=== PATIENT | female | born 1975 | race Caucasian/White ===

== ENCOUNTER 2016-08-20 19:17 | Emergency (ER) | payer MEDICAID ==
[~2016-08-20] VITALS: Ht 162.6 cm; Wt 58.0 kg
[2016-08-20 20:26] VITALS: Ht 162.6 cm; Wt 58.0 kg
[2016-08-20] MEDS ORDERED: ACETAMINOPHEN 325 MG TAB PO STA (22:12)
--- NOTE | 2016-08-20 22:17 | ERD ---
ER Documentation Chief Complaint Date/Time DATE: 08/20/16 TIME: 22:14 Chief Complaint 9 weeks , vag bleeding x 2 days w/ pelvic pain HPI The patient is a 40-year-old female here with vaginal bleeding and lower abdominal pain since yesterday. The bleeding has increased since this morning. Last menstrual period was 06/20/16. She was diagnosed with at her doctor's office recently. She is a . She denies dysuria, flank pain, fever , chills, nausea, vomiting, diarrhea, recent illness, dizziness, lightheadedness , chest pain, or any other symptoms or concerns at this time. ROS All systems reviewed and are negative except as per history of present illness. Medications Home Meds Active Scripts Acetaminophen* (Tylenol*) 325 Mg Tablet, 2 TAB PO Q8 Y for PAIN AND OR ELEVATED TEMP, #20 TAB Prov:JUAN DANIEL LYLES, INSPECTOR ALIGNING 08/21/16 Phenazopyridine Hcl* (Pyridium*) 100 Mg Tab, 100 MG PO TID Y for URINARY PAIN, # 8 TAB Prov:JUAN DANIEL LYLES NP 08/21/16 Nitrofurantoin Monohyd Macrocr* (Macrobid*) 100 Mg Capsr, 100 MG PO BID for 7 Days, CAP Prov:JUAN DANIEL LYLES NP 08/21/16 Allergies Allergies: Coded Allergies: No Known Allergy (Unverified , 08/20/16) PMhx/Soc Medical and Surgical Hx: pt denies Medical Hx, pt denies Surgical Hx History of Surgery: No Anesthesia Reaction: No Hx Neurological Disorder: No Hx Respiratory Disorders: No Hx Cardiac Disorders: No Hx Psychiatric Problems: No Hx Miscellaneous Medical Probl: No Hx Alcohol Use: No Hx Substance Use: No Hx Tobacco Use: No Smoking Status: Never smoker Physical Exam Vitals Vital Signs Date Time Temp Pulse Resp B/P Pulse Ox O2 Delivery O2 Flow Rate FiO2 08/21/16 00:56 100.2 78 18 125/70 100 Room Air 08/20/16 20:26 98.9 96 20 135/68 100 Physical Exam INITIAL VITAL SIGNS: Reviewed by me GENERAL: Alert. Well developed and well nourished. No acute distress. Nontoxic appearing. HEAD: Head is normocephalic. Atraumatic. EYES: EOMI. PERRL. No scleral icterus. No conjunctival injection. ENT: External ears, nose, and mouth normal. Nasal passages patent. Moist mucous membranes. NECK: Supple. Full range of motion. Trachea midline. RESPIRATORY: No tachypnea. Clear to auscultation bilaterally. No wheezing, rales , or rhonchi. CV: Regular rate and rhythm. No murmurs, rubs, or gallops ABDOMEN: Soft, non-distended, non-tender. No guarding. Bowel sounds normal in all quadrants. BACK: No CVA tenderness. Full ROM. EXTREMITIES: No obvious deformity. No clubbing or cyanosis. No edema. SKIN: Warm and dry. No diaphoresis. No obvious rashes or lesions. NEUROLOGIC: Alert and oriented x 3. Appropriate. Face is symmetric. Speech is normal. Moves all extremities equally. Result Diagram: 08/20/162234 Results 24 hrs Laboratory Tests Test 08/20/16 22:35 08/20/16 22:55 Basophils # 0.010^3/ul Basophils % 0.3% Beta HCG, Quantitative 34370.0mIU/ml Eosinophils # 0.010^3/ul Eosinophils % 0.2% Hematocrit 41.5% Hemoglobin 14.1g/dl Lymphocytes # 1.810^3/ul Lymphocytes % 12.0% Mean Corpuscular Hemoglobin 29.8pg Mean Corpuscular Hemoglobin Concent 34.0g/dl Mean Corpuscular Volume 87.6fl Mean Platelet Volume 8.9fl Monocytes # 0.610^3/ul Monocytes % 3.9% Neutrophils # 12.310^3/ul Neutrophils % 83.6% Nucleated Red Blood Cells # 0.010^3/ul Nucleated Red Blood Cells % 0.0/100WBC Platelet Count 26025^3/UL Red Blood Count 4.7410^6/ul Red Cell Distribution Width 12.8% White Blood Count 14.710^3/ul Urine Bacteria FEW Urine Bilirubin NEGATIVE Urine Clarity CLOUDY Urine Color DK. RED Urine Glucose NEGATIVE% Urine Hemoglobin 3+ Urine Ketones 15 Urine Leukocyte Esterase 1+ Urine Microscopic RBC >200/HPF Urine Microscopic WBC 5-10/HPF Urine Nitrite POSITIVE Urine Specific [place] 1.020 Urine Squamous Epithelial Cells OCCASIONAL Urine Total Protein 2+ Urine Urobilinogen 1.0 E.U./dL Urine pH 5.0 Current Medications Medications (Trade) Dose Ordered Sig/Rashard Route PRN Reason Start Time Stop Time Status Last Admin Dose Admin Acetaminophen (Tylenol Tab) 1,000 mg ONCE STAT PO 08/20/16 22:12 08/20/16 22:14 DC Acetaminophen (Tylenol Tab) 1,000 mg ONCE STAT PO 08/20/16 22:31 08/20/16 22:32 DC 08/20/16 22:34 Acetaminophen (Tylenol Tab) 500 mg STK-MED ONCE .ROUTE 08/20/16 22:32 08/20/16 22:33 DC [place] [id number] Radiology Main Line: [phone] DIAGNOSTIC IMAGING REPORT Patient: DONTE VELEZ : 1975 Age: 40 Sex: F MR #: [id number] DOS: 08/20/16 2212 Ordering MD: JUAN DANIEL LYLES NP Location: [facility] Room/Bed: PROCEDURE: Obstetrical ultrasound. CLINICAL INDICATION: Vaginal bleeding. TECHNIQUE: Multiple sonographic images of the pelvis were obtained utilizing a transabdominal and endovaginal technique. The images were reviewed on a PACS workstation. COMPARISON: None. FINDINGS: The uterus is visualized. No abnormal uterine mass is identified. The endometrial echo complex is thickened and heterogeneous measuring 20.5 mm. No intrauterine is identified. There is no abnormal flow to suggest retained products. There is no evidence for free fluid. The right ovary has a normal echotexture and measures 2.8 x 1.0 x 2.1 cm. The left ovary has a normal echotexture and measures 2.9 x 1.4 x 1.8 cm. There is normal flow to both ovaries. No adnexal masses are identified. IMPRESSION: Thickened and heterogeneous endometrium with no evidence of intrauterine or retained products. Clinical beta-hCG correlation and follow-up is recommended. .David Barrow MD, MD Date Time Electronically viewed and signed by .David Barrow MD, on 08/20/2016 23:40 .T/ CC: JUAN DANIEL LYLES NP Procedures/MDM Nursing Notes Reviewed Previous Medical Records requested via [employer]. EMERGENCY DEPARTMENT COURSE / MEDICAL DECISION MAKING: The patient comes to the ED secondary to vaginal bleeding, lower abdominal cramping since yesterday. Differential diagnosis upon initial evaluation includes but is not limited to: Ectopic , threatened , incomplete , complete , and others. The patient was treated with Tylenol 1 g by mouth with relief. The case was discussed with supervising physician Dr. Knowles. Ultrasound per radiology report: IMPRESSION: Thickened and heterogeneous endometrium with no evidence of intrauterine or retained products. Clinical beta-hCG correlation and follow-up is recommended. Beta HC CBC: no e/o of systemic infection or severe anemia UA: Evidence of infection Otherwise within normal limits, unremarkable, or as documented above. Final impression: Threatened Urinary tract infection Based on patient's history of present illness and physical examination the decision was made to discharge. The patient was re-evaluated after ED treatment and stabilizing measures, and symptoms have improved. There is no evidence of life threatening injuries or illnesses at this time. On re-examination, patient resting in no distress, stable vital signs, reports feeling better and safe for discharge with outpatient follow up here and 48 hours for a re-check of her beta HCG. Patient given return precautions. The patient's sister was with her when I gave return precautions and plan of care. They both verbalized understanding and agreed and all of their questions and concerns were addressed prior to discharge. They both agreed that the patient will return here in 48 hours. Patient's blood pressure was elevated but appears stable without evidence of hypertensive emergency, end organ damage, chest pain or shortness of breath. The patient was counseled about the risks of untreated hypertension and urged to pursue outpatient monitoring and therapy in 2-3 days with their primary care physician. Prescriptions Tylenol Pyridium Macrobid JUAN DANIEL LYLES NP Aug 20, 2016 22:17
[2016-08-20] MEDS ORDERED: ACETAMINOPHEN 500 MG TAB PO STA (22:31)
[2016-08-20] MEDS ORDERED: ACETAMINOPHEN 500 MG TAB ONE (22:32)
[2016-08-20 22:57] LABS: BASOPHILS % 0.3 % (0.0-2.0); EOSINOPHILS % 0.2 % (0.0-7.0); HEMATOCRIT 41.5 % (37.0-47.0); HEMOGLOBIN 14.1 g/dl (12.0-16.0); LYMPHOCYTES # 1.8 10^3/ul (0.8-2.9); MEAN CORPUSCULAR HEMOGLOBIN 29.8 pg (29.0-33.0); MEAN CORPUSCULAR VOLUME 87.6 fl (82.0-101.0); MEAN PLATELET VOLUME 8.9 fl (7.4-10.4); MONOCYTE # 0.6 10^3/ul (0.3-0.9); MONOCYTES % 3.9 % (0.0-11.0); NEUTROPHIL # 12.3 10^3/ul (1.6-7.5); NEUTROPHILS % 83.6 % (39.0-77.0); PLATELET COUNT 256 10^3/UL (140-440); RED BLOOD COUNT 4.74 10^6/ul (4.20-5.40); RED CELL DISTRIBUTION WIDTH 12.8 % (11.5-14.5); UNCORRECTED WBC 14.7 10^3/ul (4.8-10.8); WHITE BLOOD COUNT 14.7 10^3/ul (4.8-10.8)
[2016-08-20 23:02] LABS: CONDITION 1
[2016-08-20 23:34] LABS: ADD UMIC YES; URINE BILIRUBIN (Dip) NEGATIVE (NEGATIVE); URINE BLOOD (Dip) 3+ (NEGATIVE); URINE COLOR DK. RED (YELLOW); URINE GLUCOSE (Dip) NEGATIVE (NEGATIVE); URINE KETONES (Dip) 15 (NEGATIVE); URINE LEUKOCYTE ESTERASE (Dip) 1+ (NEGATIVE); URINE NITRITE (Dip) POSITIVE (NEGATIVE); URINE TOTAL PROTEIN (Dip) 2+ (NEGATIVE); URINE UROBILINOGEN (Dip) 1.0 E.U./dL (0.1-1.0)
--- NOTE | 2016-08-20 23:41 | RADRPT ---
PROCEDURE: Obstetrical ultrasound. CLINICAL INDICATION: Vaginal bleeding. TECHNIQUE: Multiple sonographic images of the pelvis were obtained utilizing a transabdominal and endovaginal technique. The images were reviewed on a PACS workstation. COMPARISON: None. FINDINGS: The uterus is visualized. No abnormal uterine mass is identified. The endometrial echo complex is t hickened and heterogeneous measuring 20.5 mm. No intrauterine is identified. There is no a bnormal flow to suggest retained products. There is no evidence for free fluid. The right ovary has a normal echotexture and measures 2.8 x 1. 0 x 2.1 cm. The left ovary has a normal echotexture and measures 2.9 x 1.4 x 1.8 cm. There is norm al flow to both ovaries. No adnexal masses are identified. IMPRESSION: Thickened and heterogeneous endometrium with no evidence of intrauterine or retained produ cts. Clinical beta-hCG correlation and follow-up is recommended. .David Barrow MD, Date Time Electronically viewed and signed by .David Barrow MD, MD on 08/20/2016 23:40 .T/
[2016-08-20 23:54] LABS: BACTERIA,URINE FEW; SQUAMOUS EPITHELIAL CELL,UR OCCASIONAL; URINE RBCS >200 /HPF (0)
[2016-08-21] MEDS ORDERED: PHEN-537 PO (00:32)
[2016-08-21] MEDS ORDERED: NITR-58 PO (00:32)
[2016-08-21] MEDS ORDERED: ACET325T33 PO (00:32)
[2016-08-21 00:56] VITALS: BP 125/70; PULSE 78; RESP 18; TEMP 100.2
== END 2016-08-21 01:05 | disposition home or self-care (01) ==
LOC: EDBD 19:17 → FTE 19:17
DX: O20.0 Threatened abortion (principal); O23.41 Unspecified infection of urinary tract in pregnancy, first trimester; R10.2 Pelvic and perineal pain
CPT/HCPCS: 36415; 76801; 76817; 81001; 81003; 84702; 85025; 86900; 86901; Z7502; Z7610

== ENCOUNTER 2016-08-22 16:07 | Emergency (ER) | payer MEDICAID ==
[~2016-08-22] VITALS: Ht 162.6 cm; Wt 67.0 kg
[~2016-08-22 16:07] MED LIST: ACET325T33 PO; NITR-58 PO; PHEN-537 PO
[2016-08-22 16:16] VITALS: Ht 162.6 cm; Wt 67.0 kg
--- NOTE | 2016-08-22 20:05 | ERD ---
ER Documentation Chief Complaint Date/Time DATE: 08/22/16 TIME: 19:51 Chief Complaint SEEN ON TUESDAY FOR MISCARRIAGE TOLD TO COME BACK TODAY FOR RECHECK HPI The patient is a 40-year-old female here for recheck of her beta hCG and ultrasound. She was last seen here on 08/20/16. She came in with vaginal bleeding and lower abdominal pain while at that time. Currently, she states that she has only minimal spotting, no clots, and very mild and intermittent uterine cramping. She denies fever, chills, nausea, vomiting, diarrhea, flank pain, dysuria, chest pain, difficulty breathing, dyspnea on exertion, fatigue, the more tired than usual, or any other symptoms. ROS All systems reviewed and are negative except as per history of present illness. Medications Home Meds Active Scripts Acetaminophen* (Tylenol*) 325 Mg Tablet, 2 TAB PO Q8 Y for PAIN AND OR ELEVATED TEMP, #20 TAB Prov:JUAN DANIEL LYLES, MERY 08/21/16 Phenazopyridine Hcl* (Pyridium*) 100 Mg Tab, 100 MG PO TID Y for URINARY PAIN, # 8 TAB Prov:JUAN DANIEL LYLES POT OPERATOR 08/21/16 Nitrofurantoin Monohyd Macrocr* (Macrobid*) 100 Mg Capsr, 100 MG PO BID for 7 Days, CAP Prov:JUAN DANIEL LYLES NP 08/21/16 Allergies Allergies: Coded Allergies: No Known Allergy (Unverified , 08/20/16) PMhx/Soc History of Surgery: No Anesthesia Reaction: No Hx Neurological Disorder: No Hx Respiratory Disorders: No Hx Cardiac Disorders: No Hx Psychiatric Problems: No Hx Miscellaneous Medical Probl: Yes (Miscarriage,UTIs) Hx Alcohol Use: No Hx Substance Use: No Hx Tobacco Use: No Smoking Status: Never smoker Physical Exam Vitals Vital Signs Date Time Temp Pulse Resp B/P Pulse Ox O2 Delivery O2 Flow Rate FiO2 08/22/16 16:16 98.1 78 18 137/71 100 Physical Exam INITIAL VITAL SIGNS: Reviewed by me, afebrile, no tachycardia, no tachypnea, oximetry 100% on room air. GENERAL: Alert. Well developed and well nourished. No acute distress. Nontoxic appearing. HEAD: Head is normocephalic. Atraumatic. EYES: EOMI. No scleral icterus. No conjunctival injection. ENT: External ears, nose, and mouth normal. Nasal passages patent. Moist mucous membranes. NECK: Supple. Full range of motion. Trachea midline. RESPIRATORY: No tachypnea. Clear to auscultation bilaterally. No wheezing, rales , or rhonchi. CV: Regular rate and rhythm. No murmurs, rubs, or gallops ABDOMEN: Soft, non-distended, non-tender. No guarding. No rebound. Bowel sounds normal in all quadrants. BACK: No CVA tenderness. Full ROM. EXTREMITIES: No obvious deformity. No clubbing or cyanosis. No edema. SKIN: Warm and dry. No diaphoresis. No obvious rashes or lesions. NEUROLOGIC: Alert and oriented x 3. Appropriate. Face is symmetric. Speech is normal. Moves all extremities equally. Result Diagram: 08/22/162112 Results 24 hrs Laboratory Tests Test 08/22/16 19:00 08/22/16 19:50 08/22/16 21:13 Beta HCG, Quantitative 3400.1mIU/ml Urine Bacteria FEW Urine Bilirubin NEGATIVE Urine Clarity [place] Urine Color RAIZA Urine Glucose 0.1%% Urine Hemoglobin 3+ Urine Ketones NEGATIVE Urine Leukocyte Esterase TRACE Urine Microscopic RBC >200/HPF Urine Microscopic WBC 2-5/HPF Urine Nitrite POSITIVE Urine Specific [place] 1.020 Urine Squamous Epithelial Cells FEW Urine Total Protein 1+ Urine Urobilinogen 1.0 E.U./dL Urine pH 5.5 Basophils # 0.010^3/ul Basophils % 0.5% Eosinophils # 0.110^3/ul Eosinophils % 1.5% Hematocrit 40.0% Hemoglobin 13.7g/dl Lymphocytes # 2.510^3/ul Lymphocytes % 26.2% Mean Corpuscular Hemoglobin 30.1pg Mean Corpuscular Hemoglobin Concent 34.1g/dl Mean Corpuscular Volume 88.0fl Mean Platelet Volume 9.5fl Monocytes # 0.610^3/ul Monocytes % 6.1% Neutrophils # 6.310^3/ul Neutrophils % 65.7% Nucleated Red Blood Cells # 0.010^3/ul Nucleated Red Blood Cells % 0.0/100WBC Platelet Count 08898^3/UL Red Blood Count 4.5510^6/ul Red Cell Distribution Width 12.9% White Blood Count 9.610^3/ul [place] [id number] Radiology Main Line: [phone] DIAGNOSTIC IMAGING REPORT Patient: DONTE VELEZ : 1975 Age: 40 Sex: F MR #: [id number] DOS: 08/22/162004 Ordering MD: JUAN DANIEL LYLES NP Location: [facility] Room/Bed: PROCEDURE: US OB. CLINICAL INDICATION: Positive , vaginal bleeding TECHNIQUE: Transabdominal and transvaginal views of the pelvis are available for review. COMPARISON: Ultrasound 08/20/2016 FINDINGS: Uterus: Normal; 7.2 x 5.2 cm. There is no evidence of myometrial mass. Endometrial cavity: No intrauterine is identified, the thickness is normal measuring 3.4 mm. Right ovary / adnexa: The ovary is not visualized. There is no evidence of adnexal mass. Left ovary/adnexa: Ovarian size is normal measuring 1.6 x 1.1 cm with no evidence of ovarian or adnexal mass. Normal blood flow seen on Doppler interrogation. Cul-de-sac: No evidence of free fluid. RPTAT:HJJR IMPRESSION: No intrauterine identified. Ectopic is not excluded, but there are no suspicious findings at this time. The study is unchanged from 08/20. Correlation with serial beta HCGs is suggested with followup ultrasound as clinically indicated. Physician Nixon Date Time Electronically viewed and signed by Physician Nixon on 08/22/2016 20:51 JR/ CC: JUAN DANIEL LYLES NP Procedures/MDM Nursing Notes Reviewed Previous Medical Records requested via [employer]. EMERGENCY DEPARTMENT COURSE / MEDICAL DECISION MAKING: The patient comes to the ED secondary to recheck for labs and OB ultrasound. She was last seen here 2 days ago and was diagnosed with threatened and urinary tract infection. Differential diagnosis upon initial evaluation includes but is not limited to: Ectopic , threatened , molar , tract infection, pyelonephritis, and others. The case was discussed with supervising physician Dr. Sotomayor. The CBC, beta, UA , and ultrasound were obtained. CBC: no e/o of systemic infection or severe anemia Beta HC Urine: + Urinary tract infection Otherwise within normal limits, unremarkable, or as documented above. OB ultrasound per radiology report: IMPRESSION: No intrauterine identified. Ectopic is not excluded, but there are no suspicious findings at this time. The study is unchanged from 08/20. Correlation with serial beta HCGs is suggested with followup ultrasound as clinically indicated. As her beta hCG is trending down, there is no lab evidence of anemia, and given her ultrasound report, I have low suspicion at this time for ectopic , molar , or live intrauterine . Given that she is afebrile, with no flank pain, with no CVA tenderness, no dysuria, and is being treated currently for urinary tract infection with antibiotics as prescribed, I have low suspicion for pyelonephritis. Final impression: Spontaneous Urinary tract infection Based on patient's history of present illness and physical examination the decision was made to discharge. There is no evidence of life threatening injuries or illnesses at this time. On re-examination, patient resting in no distress, stable vital signs, reports feeling safe for discharge with outpatient follow up with her primary care provider in 48 hours for recheck. She was instructed that if she cannot get an appointment with her primary care provider or LOGGING TRUCK DRIVER in 48 hours to please return here for a recheck. Patient given return precautions. She verbalized understanding and agreed. Her sister was present during the entire stay and the discharge instructions. Their questions and concerns were addressed prior to discharge. They agree with the plan of care. Departure Diagnosis: Primary Impression: Spontaneous Condition: Stable JUAN DANIEL LYLES NP Aug 22, 2016 20:05
[2016-08-22 20:09] LABS: ADD UMIC YES; URINE BILIRUBIN (Dip) NEGATIVE (NEGATIVE); URINE BLOOD (Dip) 3+ (NEGATIVE); URINE COLOR AMBER (YELLOW); URINE KETONES (Dip) NEGATIVE (NEGATIVE); URINE LEUKOCYTE ESTERASE (Dip) TRACE (NEGATIVE); URINE NITRITE (Dip) POSITIVE (NEGATIVE); URINE TOTAL PROTEIN (Dip) 1+ (NEGATIVE); URINE UROBILINOGEN (Dip) 1.0 E.U./dL (0.1-1.0)
[2016-08-22 20:42] LABS: URINE RBCS >200 /HPF (0)
[2016-08-22 20:43] LABS: BACTERIA,URINE FEW; SQUAMOUS EPITHELIAL CELL,UR FEW
--- NOTE | 2016-08-22 20:51 | RADRPT ---
PROCEDURE: US OB. CLINICAL INDICATION: Positive , vaginal bleeding TECHNIQUE: Transabdominal and transvaginal views of the pelvis are available for review. COMPARISON: Ultrasound 08/20/2016 FINDINGS: Uterus: Normal; 7.2 x 5.2 cm. There is no evidence of myometrial mass. Endometrial cavity: No intrauterine is identified, the thickness is normal measuring 3.4 mm. Right ovary / adnexa: The ovary is not visualized. There is no evidence of adnexal mass. Left ovary/adnexa: Ovarian size is normal measuring 1.6 x 1.1 cm with no evidence of ovarian or adn exal mass. Normal blood flow seen on Doppler interrogation. Cul-de-sac: No evidence of free fluid. RPTAT:HJJR IMPRESSION: No intrauterine identified. Ectopic is not excluded, but there are no suspiciou s findings at this time. The study is unchanged from 08/20/2016. Correlation with serial beta HCGs is suggested with followup ultrasound as clinically indicated. Physician Nixon Date Time Electronically viewed and signed by Physician Nixon on 08/22/2016 20:51 JR/
[2016-08-22 22:24] LABS: BASOPHILS % 0.5 % (0.0-2.0); EOSINOPHILS # 0.1 10^3/ul (0.0-0.5); EOSINOPHILS % 1.5 % (0.0-7.0); HEMOGLOBIN 13.7 g/dl (12.0-16.0); LYMPHOCYTES # 2.5 10^3/ul (0.8-2.9); LYMPHOCYTES % 26.2 % (15.0-51.0); MEAN CORPUSCULAR HEMOGLOBIN 30.1 pg (29.0-33.0); MEAN CORPUSCULAR HGB CONC 34.1 g/dl (32.0-37.0); MEAN PLATELET VOLUME 9.5 fl (7.4-10.4); MONOCYTE # 0.6 10^3/ul (0.3-0.9); MONOCYTES % 6.1 % (0.0-11.0); NEUTROPHIL # 6.3 10^3/ul (1.6-7.5); NEUTROPHILS % 65.7 % (39.0-77.0); PLATELET COUNT 247 10^3/UL (140-440); RED BLOOD COUNT 4.55 10^6/ul (4.20-5.40); RED CELL DISTRIBUTION WIDTH 12.9 % (11.5-14.5); UNCORRECTED WBC 9.6 10^3/ul (4.8-10.8); WHITE BLOOD COUNT 9.6 10^3/ul (4.8-10.8)
[2016-08-22 22:28] LABS: CONDITION 1
[2016-08-22 22:56] VITALS: BP 130/70; PULSE 85; RESP 17; TEMP 98.7
== END 2016-08-22 22:58 | disposition home or self-care (01) ==
LOC: FTE 16:07
DX: O03.9 Complete or unspecified spontaneous abortion without complication (principal)
CPT/HCPCS: 36415; 76801; 76817; 81001; 81003; 84702; 85025

== ENCOUNTER 2018-06-24 16:00 | Observation (INO) | END 2018-06-25 15:15 | disposition home or self-care (01) ==

== ENCOUNTER 2018-07-10 23:50 | Outpatient (CLI) | END 2018-07-11 03:02 | disposition home or self-care (01) ==

== ENCOUNTER 2018-07-11 07:05 | Inpatient (IN) | payer MEDICAID ==
[~2018-07-11] VITALS: Ht 154.9 cm; Wt 59.3 kg
[~2018-07-11 07:05] MED LIST changes: -ACET325T33 PO; +FERR256T PO; -NITR-58 PO; -PHEN-537 PO; +PNV11TAB PO
[2018-07-11 07:20] VITALS: BP 120/68; PULSE 82; RESP 18; Ht 154.9 cm; Wt 59.3 kg
[2018-07-11] MEDS ORDERED: LACTATED RINGER'S 1,000 ML IV SCH (07:31)
--- NOTE | 2018-07-11 07:36 | TRIAGE ---
OB Triage Datetime Report Generated by CPN: 07/11/2018 07:36 Datetime: 07/11/2018 07:22 Dilatation (cms): 7.0 Effacement (%): 100 Station: 0 Exam By: nettie Membrane Status: Ruptured Membranes Rupture Method: Spontaneous Amniotic Fluid Color: Clear Amniotic Fluid Amount: Moderate Amniotic Fluid Odor: None Vaginal Bleeding: Normal Show Cervix, Consistency: Soft Cervix, Position: Anterior Presentation 'A': Cephalic Datetime: 07/11/2018 07:16 Assessment Type: Triage Level of Consciousness: Fully Conscious DTR's/Clonus: DTRs 2+; No Clonus Headache: Denies Blurred Vision: No Respiratory Effort: Unlabored; Regular Rhythm; Equal Expansion Breath Sounds, Left: Clear and Equal Breath Sounds, Right: Clear and Equal Nausea/Vomiting: Denies RUQ Epigastric Pain: Denies Lower Extremities Edema: None Degree: None Upper Extremities Edema: None Degree: None Facial Edema: None History of Falling: (0) No Secondary Diagnosis: (0) No Ambulatory Aid: (0) Bedrest/Nurse Assist IV Therapy: (0) No Gait: (0) Normal/Bedrest/Immobile Mental Status: (0) Oriented to Own Ability Fall Score: 0 Fall Risk Score Definition: No Risk: No action required Datetime: 07/11/2018 07:15 Time of Arrival: 07/11/2018 07:02 EGA: 38.5 Arrived By: Ambulatory; Wheelchair Arrived From: Home Chief Complaint: PT. HERE C/O UC'S AND SPOTTING Movement: Present Contractions: Irregular Rupture of Membranes: Denies Vaginal Bleeding: None Vaginal Discharge: Present Recent Sexual Intercouse: Denies Abdominal Trauma: Not Applicable Patient Complaints: Contractions; Cramping; Back Pain Time Provider Notified: 07/11/2018 07:25 Provider Notified: CHRIS Initial Plan: EFM/SVE Datetime: 07/11/2018 07:14 Monitor Mode: External Monitor Mode: External US
[2018-07-11] MEDS ORDERED: OXYCODONE/ASPIRIN (4.88/325) TAB PO PRN ×2 (08:00→11:00)
[2018-07-11] MEDS ORDERED: IBUPROFEN 600 MG TAB PO PRN (08:00)
[2018-07-11] MEDS ORDERED: CARBOPROST 250 MCG INJ IM PRN ×2 (08:00→11:00)
[2018-07-11] MEDS ORDERED: OXYTOCIN 30 UNITS/LR 500 ML IV PRN ×2 (08:00→11:00)
[2018-07-11] MEDS ORDERED: LIDOCAINE 1% (MPF) 30 ML INJ INJ PRN (08:00)
[2018-07-11] MEDS ORDERED: BUTORPHANOL 2 MG INJ IV PRN (08:00)
[2018-07-11] MEDS ORDERED: OXYTOCIN 30 UNITS/LR 500 ML IV SCH ×4 (08:00→10:56)
[2018-07-11] MEDS ORDERED: MISOPROSTOL 200 MCG TAB PR PRN ×2 (08:00→11:00)
[2018-07-11] MEDS ORDERED: METHYLERGONOVINE 0.2 MG INJ IM PRN ×2 (08:00→11:00)
--- NOTE | 2018-07-11 08:30 | LDN ---
Date/Time of Note Date/Time of Note DATE: 07/11/18 TIME: 08:30 Delivery Summary Placenta Delivered: Spontaneously Meconium: Thick Anesthesia type: Local Estimated blood loss: 200 Sponge & Needle done & correct: Yes All needle counts correct: Yes Any foreign bodies felt in the: No Delivery Information Apgars 1 Minute: 9 5 Minute: 9 Suctioning Nose & mouth suctioned at lyndsey: Yes Umbilical Cord Umbilical cord with: 3 Vessels Cord presentations: no nuchal cord Cord Blood was obtained: No Mother & Baby Disposition Disposition Mom & Baby to Maternity; Good: Yes Baby to NICU: No RICHARD LOWERY M.D. Jul 11, 2018 08:30
--- NOTE | 2018-07-11 08:31 | HP ---
Date/Time of Note Date/Time of Note DATE: 07/11/18 TIME: 08:31 OB - History Hx of Present Free Text/Dictation G1P)@38+wks GA in labor : 1 Para: 0 Care: Good Care Ultrasounds: Normal mid trimester US Obstetrical Complications: None, Gestational Diabetes Medical Complications: None Past Family/Social History * Past Medical, Surgical, Family and Obstetric Histories reviewed from chart. OB Admission Exam Vital Signs Vital Signs Vital Signs Date Temp Pulse Resp B/P (MAP) Pulse Ox O2 O2 Flow FiO2 Time Delivery Rate 07/11/18 98.4 82 18 120/68 Room Air 07:20 (85) Physical Exam Abdomen: WNL Cervical Dilatation: 6cm Effacement: 75% Station: -1 Membranes: Intact Heart Rate: 140's Accelerations: Accelerations Present Decelerations: No Decelerations Varibility: Moderate Contractions on Admission: 6-10 Minutes Apart OB Assessment/Plan Reason for admission: observation Plan: Expectant Management RICHARD LOWERY M.D. Jul 11, 2018 08:31
[2018-07-11 11:00] VITALS: BP 112/63; PULSE 79; RESP 18
[2018-07-11] MEDS ORDERED: BENZOCAINE 20% 56 ML SPRAY TOP PRN (11:00)
[2018-07-11] MEDS ORDERED: NACL 0.9% 3 ML SYG IV SCH (11:00)
[2018-07-11] MEDS ORDERED: SENNA/DOCUSATE NA (8.6MG/50MG) TAB PO PRN (11:00)
[2018-07-11] MEDS ORDERED: WITCH HAZEL/GLYCERIN PAD PR PRN (11:00)
[2018-07-11] MEDS ORDERED: ZOLPIDEM 5 MG TAB PO PRN (11:00)
[2018-07-11 11:30] VITALS: BP 115/61; PULSE 81; RESP 18
[2018-07-11] MEDS: IBUPROFEN 600 MG TAB PO SCH ×3 (12:24→23:49)
[2018-07-11 16:00] VITALS: BP 115/61; PULSE 69; RESP 18
--- NOTE | 2018-07-11 18:38 | NUR ---
EOSS:PATIENT IN STABLE CONDITION AND BONDING WELL WITH THE BABY.
[2018-07-11 19:50] VITALS: BP 108/65; PULSE 62; RESP 20
[2018-07-11] MEDS: SENNA/DOCUSATE NA (8.6MG/50MG) TAB PO SCH (20:57)
[2018-07-12 04:00] VITALS: BP 110/60; PULSE 81; RESP 19
[2018-07-12] MEDS: IBUPROFEN 600 MG TAB PO SCH ×4 (05:41→23:42)
--- NOTE | 2018-07-12 06:29 | NUR ---
eoss. stable. ambulating & voiding well. scanty lochia. bonding well with baby
[2018-07-12] MEDS: SENNA/DOCUSATE NA (8.6MG/50MG) TAB PO SCH ×2 (09:41→20:53)
--- NOTE | 2018-07-12 13:10 | QN ---
Documentation Comment Post normal vaginal delivery day 1 Afebrile Vital signs are stable Abdomen soft Uterus firm Lochia normal Extremities normal Ambulation encouraged TRISTON PEREZ MD Jul 12, 2018 13:10
[2018-07-12 15:41] VITALS: BP 109/69; PULSE 72; RESP 18
--- NOTE | 2018-07-12 18:45 | NUR ---
EOSS: VSS, BREAST FEEDING ONLY, FUNDUS REMAINS FIRM WITH SMALL AMOUNT OF LOCHIA. BONDING WELL WITH BABY.
[2018-07-12 20:00] VITALS: BP 106/58; PULSE 80; RESP 17
[2018-07-13 03:40] VITALS: BP 110/62; PULSE 83; RESP 83
--- NOTE | 2018-07-13 05:08 | NUR ---
EOSS: Pt is in stable condition. No distress noted. VSS. Fundus firm with small to scanty amount of lochia. Bonding well with baby.
[2018-07-13] MEDS: IBUPROFEN 600 MG TAB PO SCH ×2 (05:43→11:27)
[2018-07-13 07:45] VITALS: BP 121/66; PULSE 68; RESP 19
[2018-07-13] MEDS: SENNA/DOCUSATE NA (8.6MG/50MG) TAB PO SCH (09:00)
[2018-07-13] MEDS ORDERED: DIPHTH/TET/ACEL PERTUSS (ADULT) 0.5 ML VIAL IM* ONE (09:00)
--- NOTE | 2018-07-13 11:10 | NUR ---
LC NOTES: Mothers breast are filling. Mother has third spacing. LC provided soft rings to wear. LC went over reverse pressure softening and hand expression. LC did a pre and post wt. Pre wt 2614 post wt 2636. baby transferred a total of 22 mls. Mother wants to continue using breast pump for relief only and supplement after. LC asked mother if she has Breast pump at home mother stated yes. LC encouraged mother to attend support group, mother verbalized understanding, RN to follow.
[2018-07-13 11:15] VITALS: BP 109/53; PULSE 82; RESP 19
--- NOTE | 2018-07-13 12:28 | PD.PPDC ---
SHEET ROLLER OPERATOR Discharge Instruction Condition [id number] Patient Condition: Tvizd4v Good Diet [id number] Diet: Bvwfp9p Resume Regular Diet Activity/Restrictions [id number] Activity: Fabkf3m Normal Activity May Shower Llbzs0Hr Restrictions: Aapdv1q No Exercising No Lifting No Driving No Sexual Activity Nothing in the Vagina No [place] No Tampons, douche Follow-up Follow-up with Physician: 2, Week/Weeks Provider Information: instruction given recommended to make appointment to be seen at [facility] in 2 weeks Return to clinic for Woins7Ym WHIPPER Instructions: Ezofk0s Fever greater than 101 Chills Worsening abdominal pain Excessive Vaginal Bleeding More than 2 pads per hour Unable to tolerate diet Onpmv1Sg OB Instructions: Uvonx9c Breast Tenderness Depression Blurried Vision Headache [id number] Surgical Instructions: Kwgjy3o Incisional Drainage Incisional Redness TRISTON PEREZ MD Jul 13, 2018 12:28
--- NOTE | 2018-07-13 12:30 | DS ---
Date/Time of Note Date/Time of Note DATE: 07/13/18 TIME: 12:28 Discharge Summary Admission/Discharge Info Admit Date/Time Jul 11, 2018 at 07:25 Discharge Date/Time July 13, 2018 at 1300 Discharge Diagnosis Post normal vaginal delivery day 2 Patient Condition: Good Consults None Procedures Normal vaginal delivery Hx of Present Illness Term admitted to the hospital in labor Hospital Course Satisfactory recovery uneventful Home Meds Reported Medications Ferrous Gluconate (Iron) 256 Mg Tablet, 256 MG PO DAILY, TAB 06/24/18 [id number] ( 19) 1 Each Tablet, 1 TAB PO DAILY, TAB 06/24/18 Follow-up Plan instruction given recommended to make appointment to be seen at the clinic in 2 weeks Primary Care Provider [facility] Time spent on discharge: < 30 minutes TRISTON PEREZ MD Jul 13, 2018 12:30
== END 2018-07-13 14:50 | disposition home or self-care (01) | DRG 807 ==
LOC: OBT 07:05 → L-D 07:06 → OBT 07:27 → PP1 10:58
PROVIDERS: ADMIT Obstetrics & Gynecology; ATTEND Obstetrics & Gynecology
PROC: 10E0XZZ Delivery of Products of Conception, External Approach (ICD-10-PCS; principal; 2018-07-11)
PROC: 4A1HXCZ Monitoring of Products of Conception, Cardiac Rate, External Approach (ICD-10-PCS; 2018-07-11)
DX: O24.429 Gestational diabetes mellitus in childbirth, unspecified control (principal); Z37.0 Single live birth; Z3A.38 38 weeks gestation of pregnancy
CPT/HCPCS: 82947; 82962; 85025; 85610; 85730; 86592; 86850; 86900; 86901; 87340; 99464; G0463; J2590; J7120